=== PATIENT | female | born 1995 | race Caucasian/White ===

== ENCOUNTER 2020-08-08 12:17 | Observation (INO) | payer BC, MEDICAID ==
[2020-08-08] MEDS ORDERED: IV RINGERS,LACTATED 1000ML 1,000 ML IV SCH (13:00)
[2020-08-08 13:21] LABS: BILIRUBIN,URINE NEGATIVE (NEG); CLARITY,URINE CLEAR; COLOR,URINE YELLOW; NITRITE,URINE NEGATIVE (NEG); PH,URINE 7.5 (<5.0-8.0); PROTEIN,URINE NEGATIVE (NEG-TRACE); UROBILINOGEN,URINE 0.2 mg/dL (0.2 mg/dL)
[2020-08-08 13:33] LABS: RBC,URINE 0 /HPF (0-2)
[2020-08-08 13:34] LABS: BACTERIA,URINE MANY /HPF (0-FEW)
== END 2020-08-08 14:37 | disposition home or self-care (01) ==
LOC: 3 SO LND 12:17
PROVIDERS: ADMIT Obstetrics & Gynecology; ATTEND Obstetrics & Gynecology
DX: O26.892 Other specified pregnancy related conditions, second trimester (principal); R10.9 Unspecified abdominal pain; Z3A.24 24 weeks gestation of pregnancy
CPT/HCPCS: 59025; 81001; 87086; G0378; G0379